=== PATIENT | female | born 1970 | race Caucasian/White ===

== ENCOUNTER → 2019-09-22 | Outpatient (CLI) | payer BC ==
--- NOTE | 2019-09-22 13:22 | Diagnostic Imaging Report ---
INDICATION: Twisting injury to the right knee, complaining of pain. TIME OF EXAM: 9:48 a.m. FINDINGS: Three views of the right knee were obtained. There is mild tricompartmental degenerative change with mild joint space narrowing and marginal spurring. No fracture or dislocation is identified. No joint effusion is seen. IMPRESSION: Degenerative changes. No acute bony abnormality is detected. Dictated by: Dictated on workstation # [id number]
== END ==
LOC: RAD 09:29
PROVIDERS: ATTEND Nurse Practitioner Family
DX: M17.11 Unilateral primary osteoarthritis, right knee (principal)
CPT/HCPCS: 73562

== ENCOUNTER → 2019-10-17 | Outpatient (CLI) | payer BC ==
--- NOTE | 2019-10-17 11:31 | Diagnostic Imaging Report ---
MRI RT LOWER EXT JOINT W/O TECHNIQUE: Multiplanar, multisequence MR imaging of the right knee was performed without contrast. COMPARISON: Right knee radiographs from 09/22/2019 INDICATION: Right knee pain. FINDINGS: MENISCI Medial meniscus: There is a small amount of degenerative free edge tearing in the posterior horn of the medial meniscus. Lateral meniscus: Free edge degenerative tearing in the posterior horn and body of the lateral meniscus. LIGAMENTS ACL: Intact. PCL: Intact. MCL: Intact. LCL: The lateral collateral ligamentous complex is intact. EXTENSOR MECHANISM The extensor mechanism is intact. CARTILAGE Medial compartment: Medial compartment articular cartilage is well preserved without focal high-grade chondromalacia. Lateral compartment: There is full-thickness chondral loss involving the region measuring approximately 10 x 10 mm in the posterior weightbearing and nonweightbearing aspect of the lateral femoral condyle. Patellofemoral compartment: Diffuse full-thickness articular cartilage loss throughout the patellofemoral compartment. BONE No fracture, stress fracture or osteonecrosis. SOFT TISSUE Small knee joint effusion with synovitis that is likely reactive in nature. No Vera's cyst. Cystic signal posterior to the medial femoral condyle may represent small ganglion arising from the joint capsule. IMPRESSION: 1. Degenerative arthritis is greatest in the patellofemoral compartment as there is a large region of full-thickness articular cartilage loss. 2. Degenerative free edge tearing of both the medial and lateral menisci. 3. Small knee joint effusion. Dictated by: Dictated on workstation # [id number]
== END ==
LOC: RAD 09:10
PROVIDERS: ATTEND Nurse Practitioner Family
DX: M17.11 Unilateral primary osteoarthritis, right knee (principal); M23.231 Derangement of other medial meniscus due to old tear or injury, right knee; M23.261 Derangement of other lateral meniscus due to old tear or injury, right knee
CPT/HCPCS: 73721

== ENCOUNTER → 2020-09-02 | Outpatient (CLI) | payer BC ==
[~2020-09-02] MED LIST: DAPA10TA PO; LEVO175T58 PO; MELO15TA39 PO; MONT10TA26 PO; PARO40TA3 PO; PROP120C3 PO; SIMV20TA26 PO; SITA1TAB6 PO
--- NOTE | 2020-09-02 12:25 | Diagnostic Imaging Report ---
PROCEDURE: US Gallbladder. TECHNIQUE: Multiple real-time grayscale images were obtained over the right upper quadrant in various projections. INDICATION: Right upper quadrant pain. FINDINGS: The gallbladder is distended measuring 11.3 cm in length with transverse width maximal 6.8 cm. Hampton sign was reportedly negative and the gallbladder wall is non-thickened. No pericholecystic fluid. There is a non-mobile non-shadowing echogenic focus at the level of the neck of the gallbladder suspicious for stone or sludge aggregate. The central intrahepatic ducts are mildly ectatic. The common bile duct measured 5.7 mm at the upper limits of normal. No ascites. No fluid collection. The pancreas was largely obscured by gas. The unobstructed right kidney normal. IMPRESSION: 1. Distended gallbladder with likely a non-shadowing stone at its neck was non-mobile. Slight intrahepatic biliary ductal dilatation. Extrahepatic duct within normal limits of size. Correlate clinically as acute cholecystitis could not be excluded in the appropriate scenario. If there is clinical uncertainty, consider nuclear medicine hepatobiliary scanning to confirm or refute cystic duct patency. 2. No other potential acute finding. Dictated by: Dictated on workstation # [id number]
--- NOTE | 2020-09-02 12:32 | Diagnostic Imaging Report ---
INDICATION: Right upper quadrant pain with nausea and vomiting. Time of exam 9:54 a.m. Bowel gas pattern is nonobstructed. No pathologic calcifications are seen. No definite free air is identified. IMPRESSION: No acute abnormality is detected. Dictated by: Dictated on workstation # [id number]
== END ==
LOC: RAD 09:05
DX: K82.8 Other specified diseases of gallbladder (principal); K83.8 Other specified diseases of biliary tract; K59.04 Chronic idiopathic constipation; R11.2 Nausea with vomiting, unspecified
CPT/HCPCS: 74018; 76705

== ENCOUNTER 2020-09-07 05:40 | Outpatient (RCR) | payer BC ==
[~2020-09-07] VITALS: Ht 165 cm; Wt 99.0 kg
== END 2020-09-07 10:08 | disposition home or self-care (01) ==
LOC: PREOP 05:40
PROVIDERS: ATTEND Surgery
DX: Z01.812 Encounter for preprocedural laboratory examination (principal); K80.10 Calculus of gallbladder with chronic cholecystitis without obstruction; Z20.828 Contact with and (suspected) exposure to other viral communicable diseases
CPT/HCPCS: 87635

== ENCOUNTER 2020-09-09 08:49 | Day surgery (SDC) | payer BC ==
[2020-09-09] VITALS (12 sets, daily range): BP systolic 90–136; BP diastolic 58–97
[~2020-09-09] VITALS: Ht 165 cm; Wt 99.0 kg
[2020-09-09] MEDS ORDERED: CLINDAMYCIN 600 MG/50 ML IVPB 50 ML IV ONE (09:00)
[2020-09-09] MEDS: LACTATED RINGERS 1,000 ML IV PRN ×2 (09:25→12:07)
[2020-09-09 09:37] LABS: BASOPHILS # (AUTO) 0.1 10^3/uL (0.0-0.1); BASOPHILS % (AUTO) 1 % (0-10); EOSINOPHILS # (AUTO) 0.3 10^3/uL (0.0-0.3); EOSINOPHILS % (AUTO) 3 % (0-10); HEMATOCRIT 47 % (35-52); HEMOGLOBIN 14.9 g/dL (11.5-16.0); LYMPHOCYTES # (AUTO) 3.4 10^3/uL (1.0-4.0); LYMPHOCYTES % (AUTO) 31 % (12-44); MEAN CORPUSCULAR HEMOGLOBIN 29 pg (25-34); MEAN CORPUSCULAR HGB CONC 32 g/dL (32-36); MEAN CORPUSCULAR VOLUME 89 fL (80-99); MEAN PLATELET VOLUME 9.5 fL (9.0-12.2); MONOCYTES # (AUTO) 0.4 10^3/uL (0.0-1.0); MONOCYTES % (AUTO) 4 % (0-12); NEUTROPHILS # (AUTO) 6.8 10^3/uL (1.8-7.8); NEUTROPHILS % (AUTO) 62 % (42-75); PLATELET COUNT 315 10^3/uL (130-400)
--- NOTE | 2020-09-09 09:37 | Progress Note-Pre Operative ---
Pre-Operative Progress Note H&P Reviewed The H&P was reviewed, patient examined and no changes noted. Date Seen by Provider: Sep 09, 2020 Time Seen by Provider: 09:25 Date H&P Reviewed: Sep 09, 2020 Time H&P Reviewed: 09:20 Pre-Operative Diagnosis: chronic symptomatic cholecystitis LAURA OLIVA Sep 09, 2020 09:37
[2020-09-09] MEDS ORDERED: HYDR-4227 PO (09:47)
--- NOTE | 2020-09-09 09:48 | Discharge Inst-Surgical ---
D/C Lap Instructions-KIDO Reconcile Patient Problems Problems Reviewed?: Yes New, Converted, or Re-Newed RX: RX on Chart Follow Up Appt in 2 weeks Activity as tolerated No driving for 24 hours No driving while on pain medications Incentive Spirometry use every 2 hours while awake Regular Diet Symptoms to Report: Fever over 101 degree F, Nausea/Vomiting Infection Signs and Symptoms to report: Increased redness, Foul odor of wound, Increased drainage Bathing instructions: May shower Operative Area Clean/Dry; Keep incision clean/dry If any problems/questions: Contact your physician or go to Emergency Room LAURA OLIVA Sep 09, 2020 09:48
[2020-09-09] MEDS ORDERED: LIDOCAINE PF 2% 5 ML (XYLOCAINE) VIAL ONE (09:57)
[2020-09-09] MEDS ORDERED: proPOfol 200 MG/20 ML (DIPRIVAN) VIAL IV ONE (09:57)
[2020-09-09] MEDS ORDERED: fentaNYL INJECTION 100 MCG/2 ML AMP ONE (09:57)
[2020-09-09] MEDS ORDERED: MIDAZOLAM 2 MG/2 ML (VERSED) VIAL ONE ×2 (09:58→10:11)
[2020-09-09] MEDS ORDERED: BUP/EPI 0.5% 1:200,000 (SENSORCAINE) 30 ML VIAL ONE (09:59)
[2020-09-09] MEDS ORDERED: ONDANSETRON 4 MG/2 ML (SDV) Z0FRAN ONE (10:02)
[2020-09-09] MEDS ORDERED: SEVOFLURANE (ULTANE) 15 ML INHAL SOLN ONE ×3 (10:02→12:13)
[2020-09-09] MEDS ORDERED: ROCURONIUM 10 MG/ML 5 ML SYRINGE IV ONE (10:02)
[2020-09-09] MEDS ORDERED: GLYCOPYRROLATE 0.2 MG/ML (ROBINUL) 2 ML VIAL ONE ×2 (10:03→12:13)
[2020-09-09] MEDS ORDERED: NEOSTIGMINE 3 MG/3 ML VIAL ONE (10:03)
[2020-09-09] MEDS ORDERED: MIDAZOLAM 2 MG/2 ML (VERSED) VIAL IVP ONE (10:15)
[2020-09-09] MEDS ORDERED: morphine INJ 10 MG/ML 1ML (SYR OR VIAL) IVP PRN ×2 (11:00)
[2020-09-09] MEDS ORDERED: oxyCODONE/APAP 5/325MG (PERCOCET 5) TABLET PO PRN (11:00)
[2020-09-09] MEDS ORDERED: ACETAMINOPHEN 325 MG TABLET PO PRN (11:00)
[2020-09-09] MEDS ORDERED: ONDANSETRON 4 MG/2 ML (SDV) Z0FRAN IVP PRN ×2 (11:00→12:45)
[2020-09-09] MEDS ORDERED: ATROPINE INJ 0.4 MG/ML SDV ONE (12:16)
--- NOTE | 2020-09-09 12:33 | Anesthesia-General Post-Op ---
General Patient Condition Mental Status/LOC: Same as Preop Cardiovascular: Satisfactory Nausea/Vomiting: Absent Respiratory: Satisfactory Pain: Controlled Complications: Absent Post Op Complications Complications None Follow Up Care/Instructions Patient Instructions None needed. Anesthesia/Patient Condition Patient Condition Patient is doing well, no complaints, stable vital signs, no apparent adverse anesthesia problems. No complications reported per nursing. MICHAEL CHAN CRNA Sep 09, 2020 12:33
[2020-09-09] MEDS ORDERED: morphine INJ 10 MG/ML 1ML (SYR OR VIAL) IVP ONE (12:45)
--- NOTE | 2020-09-09 15:22 | Progress Note-Post Operative ---
Post-Operative Progess Note Surgeon (s)/Heat Transfer Technician (s) Surgeon BROOKLYNN ANGELES MD Heat Transfer Technician: anai mckeon APRN Pre-Operative Diagnosis chronic symptomatic cholecystitis Post-Operative Diagnosis same Procedure & Operative Findings Date of Procedure 09/09/20 Procedure Performed/Findings laparoscopic cholecystectomy Anesthesia Type get Estimated Blood Loss Estimated blood loss (mL): minimal Specimens/Packing Specimens Removed gallbladder BROOKLYNN ANGELES MD Sep 09, 2020 15:22
--- NOTE | 2020-09-09 17:26 | OPERATIVE REPORT ---
DATE OF SERVICE: 09/09/2020 ATTENDING PRIMARY CARE PHYSICIAN: Triston Nelson MD. PREOPERATIVE DIAGNOSIS: Symptomatic chronic calculous cholecystitis. POSTOPERATIVE DIAGNOSIS: Symptomatic chronic calculous cholecystitis. PROCEDURE PERFORMED: Laparoscopic cholecystectomy. SURGEON: Brooklynn Angeles MD. BRANDING SPECIALIST: Afsaneh Espinoza APRN. ANESTHESIA: General endotracheal. ESTIMATED BLOOD LOSS: Minimal. FINDINGS: Distended gallbladder with multiple gallstones. DISPOSITION: The patient tolerated the procedure well. INDICATIONS FOR PROCEDURE: The patient is a 50-year-old female with pain in the right upper abdominal quadrant, which she has had for some amount of time; however, she did have two severe episodes in the past week with pain in the right upper abdominal quadrant with associated nausea and vomiting. She underwent an ultrasound, which did show a distended gallbladder as well as gallstones. DESCRIPTION OF PROCEDURE: The patient was brought to the operating room and laid supine on the table. After adequate IV pain and sedative medications and general endotracheal intubation, the abdomen was prepped and draped in a standard surgical fashion. A 0.5% Marcaine with epinephrine was used to anesthetize the overlying skin of the left upper abdominal quadrant and a transverse skin incision was made using a 15 blade. A 0 silk suture was applied to the medial aspect of the incision for retraction and a Veress needle was inserted with a low opening pressure of 0 mmHg. Abdomen was then insufflated to 15 mmHg pressure. The Veress needle was removed and a 5 mm XL trocar was placed followed by a 5 mm 45-degree angle laparoscope visualizing the peritoneal cavity. A four-quadrant abdominal exploration was performed. There was a distended gallbladder with omental adhesions towards the gallbladder fundus. visualized the liver and omentum and stomach appeared normal. Under direct visualization, we then proceeded to place a 10 mm 45-degree angle laparoscope. A supraumbilical 10 mm port was then placed after the skin and peritoneal lining were anesthetized using 0.5% Marcaine with epinephrine and a transverse skin incision made using a 15 blade. In a similar manner, a right upper abdominal quadrant 5 mm port was placed. The patient was then placed in a reverse Trendelenburg position as well as plane right side up, left side down. The fundus of the gallbladder was then retracted anteriorly and the omental adhesions were taken down using blunt dissection as well as electrocautery and hook instrument. The hepatoduodenal ligament was then opened using blunt dissection as well as electrocautery on hook instrument. The entire critical view of safety was identified including the triangle of Calot as well as the cystic duct and artery as the only two structures going into the gallbladder as well as the cystic plate behind the proximal gallbladder. A timeout was then taken and the cystic duct and artery were then clipped proximally and distally and cut with EndoShears. The gallbladder was then dissected off the liver bed using a cautery on hook instrument with visualization of good hemostasis as well as no leaking ducts of Luschka. The gallbladder was removed through the 10 mm port site using an EndoCatch bag. The 10 mm port site fascia and peritoneum were then closed under direct visualization using a Thanh-Jacqueline device and 0 Vicryl suture. The abdomen was desufflated and the remaining ports were removed. All skin incisions were closed using 4-0 Monocryl running subcuticular sutures. Wounds were then cleaned and covered with Dermabond. The patient tolerated the procedure well. We will start IV normal pain medication as well as a clear liquid diet. When she is tolerating clears, has good pain control with oral pain medications and ambulating well, we will discharge her home. She will be instructed to do no heavy lifting or exertion for the next two weeks. Job ID: [id number] DocumentID: [id number] Dictated Date: 09/09/2020 12:21:21 Television Newscast Director Date: 09/09/2020 17:25:38 Dictated By: BROOKLYNN ANGELES MD MTDD
== END 2020-09-09 14:35 | disposition home or self-care (01) ==
LOC: SDC 08:49
PROVIDERS: ATTEND Surgery
DX: K80.10 Calculus of gallbladder with chronic cholecystitis without obstruction (principal); I10 Essential (primary) hypertension; G43.909 Migraine, unspecified, not intractable, without status migrainosus; E11.9 Type 2 diabetes mellitus without complications; E03.9 Hypothyroidism, unspecified; F41.9 Anxiety disorder, unspecified; E78.00 Pure hypercholesterolemia, unspecified; M19.90 Unspecified osteoarthritis, unspecified site; E66.9 Obesity, unspecified; Z68.36 Body mass index [BMI] 36.0-36.9, adult; Z79.899 Other long term (current) drug therapy; Z91.048 Other nonmedicinal substance allergy status; Z88.0 Allergy status to penicillin; Z88.1 Allergy status to other antibiotic agents; Z80.1 Family history of malignant neoplasm of trachea, bronchus and lung
CPT/HCPCS: 36415; 84703; 85025; 87081; 88304

== ENCOUNTER → 2020-10-13 | Outpatient (CLI) | payer BC ==
[~2020-10-13] MED LIST changes: +HYDR-4227 PO
--- NOTE | 2020-10-13 16:19 | Diagnostic Imaging Report ---
INDICATION: Hip pain. COMPARISON: None. FINDINGS: Two radiographic views of the left hip were obtained. There is no fracture, dislocation, bone destruction, or radiopaque foreign body. The visualized pelvic osseous structures and the SI joints demonstrate no acute fracture or dislocation. There is no bone destruction or radiopaque foreign body. The surrounding soft tissue structures are unremarkable. IMPRESSION: Unremarkable radiographic exam of the left hip. Dictated by: Dictated on workstation # [id number]
== END ==
LOC: RAD 15:38
DX: M70.72 Other bursitis of hip, left hip (principal)
CPT/HCPCS: 73502

== ENCOUNTER → 2020-10-19 | Outpatient (CLI) | payer BC ==
--- NOTE | 2020-10-19 14:45 | Diagnostic Imaging Report ---
PROCEDURE: US Thyroid. TECHNIQUE: Multiple real-time grayscale images were obtained of the thyroid in various projections. INDICATION: Right lobe of thyroid measures 3.5 x 0.5 x 0.7 cm. Left lobe measures 3.1 x 0.7 x 0.9 cm. Isthmus measures 3 mm. Both lobes are somewhat heterogeneous although there are no discrete solid or cystic masses. IMPRESSION: Somewhat small heterogeneous thyroid otherwise unremarkable. Dictated by: Dictated on workstation # [id number]
== END ==
LOC: RAD 13:45
DX: E03.9 Hypothyroidism, unspecified (principal)
CPT/HCPCS: 76536

== ENCOUNTER → 2022-08-07 | Outpatient (CLI) | payer BC ==
[~2022-08-07] MED LIST changes: +MONT-40 PO; -MONT10TA26 PO
[2022-08-07 17:38] LABS: BILIRUBIN,URINE NEGATIVE (NEGATIVE); CLARITY,URINE CLOUDY; COLOR,URINE YELLOW; GLUCOSE, URINE (UA) 3+ (NEGATIVE); KETONES,URINE NEGATIVE (NEGATIVE); LEUKOCYTE ESTERASE ,URINE 1+ (NEGATIVE); NITRITE,URINE NEGATIVE (NEGATIVE); PROTEIN,URINE NEGATIVE (NEGATIVE)
[2022-08-07 17:53] LABS: BACTERIA,URINE MODERATE /HPF; WBC,URINE 25-50 /HPF
== END ==
LOC: LAB 17:25
PROVIDERS: ATTEND Nurse Practitioner Family
DX: R30.0 Dysuria (principal)
CPT/HCPCS: 81000; 87088